=== PATIENT | male | born 1985 | race Caucasian/White ===

== ENCOUNTER 2017-05-07 06:42 | Day surgery (SDC) | payer OTHER ==
[~2017-05-07 06:42] MED LIST: RINGER'S SOLUTION,LACTATED 1,000 ML IV PRN; ceFAZolin SODIUM 1 GM VIAL IV PRN
[2017-05-07] MEDS ORDERED: RINGER'S SOLUTION,LACTATED 1,000 ML IV ONE ×3 (07:07→11:30)
--- NOTE | 2017-05-07 10:04 | POSTOP NO ---
Date of Surgery: 05/07/17 Patient Tolerated the Procedure: Well Post Operative Diagnosis/Procedures: Log Stacker Operator: Kevin Dorman PA-C Post-operative Diagnosis: Left shoulder anterior and posterior labral tears, biceps tendon partial tear Finding: Above Procedure: Left shoulder arthroscopy with anterior and posterior labral repairs , biceps debridement Estimated Blood Loss: Minimal Specimens: None
--- NOTE | 2017-05-07 10:08 | OR ---
Anesthesia Procedure Note - Anesthesia Procedure Note Date of Service: 05/07/17 Narrative: Vital Signs - Last Taken Temp 36.5 C 05/07/17 07:16 Pulse 57 L 05/07/17 07:16 Resp 18 05/07/17 07:16 BP 145/72 05/07/17 07:16 Pulse Ox 96 05/07/17 07:16 O2 Oxygen Delivery Method Room Air 05/07/17 10:07 ANESTHESIA PROCEDURE NOTE Date of Procedure: 05/07/2017 Time of procedure: 7:45 AM. Performed by: SHANIQUA Shepard CRNA, MSN Painting Supervisor: Candice Chen RN. Preprocedure diagnosis: Left shoulder surgery pain relief. Post procedure diagnosis: Same. Procedure: Left Interscalene nerve block. Indications: Post left shoulder surgery pain relief. Findings: See below. Details of the procedure: The patient was brought to OR #4 and placed in semi- Fowlers position. The patient was prepped with chlorhexidine and using ultrasound guidance the left interscalene segment of the brachial plexus was identified and lidocaine 1% was infiltrated to the skin of the intended injection site. Under ultrasound guidance the interscalene nerve bundles were approached with visualization of a 2inch stimulator needle visualized unde ultrasound until a shoulder/arm response was identified on nerve stimulator. Once the stimulator response was effective at less than 0.5 mV and greater than 0.3 mV the bracheal plexus nerves at this level were surrounded with 30 mL bupivacaine 0.25% with 1-200,000 epinephrine. Please see radiology/ultrasound report for details and retained images of the procedure. EBL: 0 Fluids: N/A. Specimen: N/A. Post procedure condition: The patient tolerated the procedure well. No complications were noted. Thank you for this consultation. Cricket Ogden CRNA, [employer], MSN
--- NOTE | 2017-05-07 10:12 | OR ---
Operative Report - Dictated Report Narrative: Date: 05/07/2017 Physician: Brock Posadas M.D. Collections Representative: Kevin Dorman PA-C Preoperative diagnosis: Left Shoulder anterior labral tear, posterior labral cyst Postoperative diagnosis: Left Shoulder anterior and posterior labral tear, partial biceps tendon tear Procedure: Left shoulder arthroscopy with anterior and posterior labral repair, biceps debridement Anesthesia: General plus regional Complications: None Estimated blood loss: Minimal Specimens: None Retained implants: [employer] 2.3 mm peek curved bio Raptor anchor 3, straight 1 Drains: None Indications: Mr. Wright Is a 32 year-old gentleman who has been followed in my clinic with complaints of shoulder pain consistent with labral pathology. Physical exam and diagnostic imaging were consistent with his complaints and concern for labral tear. Conservative measures have failed including, but not limited to, passage of time, activity modification, medications, physical therapy/home exercise program, or injections. The risks, benefits, and alternatives were discussed in clinic. The risks being , bleeding, infection, blood clots, nerve, tendon, ligament, blood vessel injury, persistent pain, arthrosis, stiffness, need for prolonged therapy, need for additional procedures, and persistent symptoms. Consent was obtained in the clinic. Procedure: After marking the correct extremity in the preoperative holding area, a timeout was performed in the operating room. IV antibiotics consisting of Ancef were administered prior to the procedure. A general followed by regional anesthetic was induced by the nurse child support specialist per my request. This was in the supine position, then the patient was transitioned to a beachchair position with all bony prominences well-padded, head in neutral, the nonoperative arm well supported, and the legs padded with SCDs in place. The operative shoulder was then prepped and draped in a standard sterile fashion. Preoperatively the shoulder had full passive range of motion, and no gross instability. After marking out the bony landmarks, saline was infused into the joint through a posterior lateral portal site. A roxi incision was made, and the blunt trocar and cannula was introduced into the shoulder joint. An accessory portal was placed in the rotator cuff interval using a spinal needle for guidance. Upon initial evaluation, the biceps tendon showed a partial approximately 15% thickness tear over a short distance as it inserted onto the labrum. This was debrided using a shaver. The remaining biceps tendon was unremarkable. The middle glenohumeral ligament was intact. Subscapularis tendon was unremarkable. The glenoid showed no significant arthrosis anteriorly. Posteriorly there was a area of chondral loss approximately 5 mm x 1 cm in the area of the labral cyst identified on the MRI. The humeral head articular surface showed a small area of central chondral damage without full-thickness and no signs of Hill-Sachs anterior or posterior. The anterior labrum was flipped into a warm and a parrot beak type fashion from approximately the 8 o' clock position torn up to the 11 o'clock position. The superior labrum was intact. The pouch was unremarkable. The posterior labrum was torn and elevated for approximately the 2:00 to the 4 o'clock position. The supraspinatus tendon was unremarkable. The infraspinatus tendon was unremarkable. Initial attention was turned to the posterior labrum. The posterior labral tissue was elevated off. The posterior glenoid rim was prepared for labral repair. 2 curved anchors were placed at approximately the 2 :00 and 3:00 positions. The sutures were then passed around the posterior labrum securing the labral tissue down with the knots away from the joint providing a posterior bumper. We then returned to the anterior labrum. Labral tissues the remaining labral tissue was mobilized onto the anterior portion of the glenoid. The anterior tissues were then repaired into the labral repair in order to provide a more robust anterior labrum and secured at the 9:00 and 11: 00 positions. This significantly decreased the joint space and provided a return of the labral appearance. The shoulders place a range of motion was noted to be stable with no signs of instability. The cannula was removed and The portal sites were closed with interrupted nylon. Dressings consisting of Xeroform, 4 x 4, ABD, and tape were applied. All sponge, needle, blade, and instrument counts were correct prior to closing the wounds. The patient was awoken and transferred to the postanesthesia care unit in stable condition.
[2017-05-07] MEDS ORDERED: RINGER'S SOLUTION,LACTATED 1,000 ML IV PRN (11:21)
[2017-05-07] MEDS ORDERED: oxyCODONE HCL/ACETAMINOPHEN 1 TAB TABLET PO PRN (11:22)
[2017-05-07] MEDS ORDERED: HYDROmorphone HCL 2 MG/ML VIAL IV PRN (11:23)
[2017-05-07] MEDS ORDERED: ONDANSETRON HCL/PF 2 MG/ML VIAL IV PRN (11:30)
[2017-05-07 17:00] VITALS: BP 137/86
== END 2017-05-07 06:43 | disposition home or self-care (01) ==
LOC: AMB 06:42
PROVIDERS: ATTEND Orthopaedic Surgery
PROC: 0MM24ZZ Reattachment of Left Shoulder Bursa and Ligament, Percutaneous Endoscopic Approach (ICD-10-PCS; principal; 2017-05-07)
PROC: 0RBK4ZZ Excision of Left Shoulder Joint, Percutaneous Endoscopic Approach (ICD-10-PCS; 2017-05-07)
PROC: 3E0T3BZ Introduction of Anesthetic Agent into Peripheral Nerves and Plexi, Percutaneous Approach (ICD-10-PCS; 2017-05-07)
DX: S43.432A Superior glenoid labrum lesion of left shoulder, initial encounter; S46.112A Strain of muscle, fascia and tendon of long head of biceps, left arm, initial encounter; Z68.38 Body mass index [BMI] 38.0-38.9, adult
CPT/HCPCS: 29807; 29822; 64415; J2405